=== PATIENT | female | born 1990 | race Caucasian/White ===

== ENCOUNTER 2020-04-02 12:01 | Emergency (ER) | payer OTHER, SELFPAY ==
--- NOTE | ~2020-04-02 | XR_ITS ---
EXAMINATION: XR shoulder RT min 2V DATE: 04/02/2020 12:42 INDICATION: Right shoulder pain. TECHNIQUE: 5 views of right shoulder were obtained. COMPARISON: None. FINDINGS: Bone alignment is normal. No fracture. Glenohumeral joint is normal. There is mild acromioc lavicular joint osteoarthritis. IMPRESSION: 1. Mild right acromioclavicular joint osteoarthritis. Reviewed, dictated and finalized at location A.
[2020-04-02 12:09] VITALS: BP 112/67; PULSE 77; RESP 16; TEMP 37.1; O2SAT 100
--- NOTE | 2020-04-02 12:45 | ED.GENADULT ---
HPI - General Adult General Chief complaint: Extremity Problem,Nontraumatic Stated complaint: arm pain Time Seen by Provider: 04/02/20 12:45 Source: patient and RN notes reviewed Mode of arrival: ambulatory Limitations: no limitations History of Present Illness HPI narrative: 29-year-old female presents with complaints of right diffused shoulder pain for the past 1.5 months. Chiropractor treatment and OTC medication (no medication for 2 weeks) with little relief. Denies numbness or tingling. Shameka says she fell down the steps and reached out to grab something to break her fall, otherwise no known injury. Hurts with movement of shoulder. Denies radiating pain. No loss of mobility. No swelling. Exacerbating factor is movement. Relieving factor is rest. The dominant hand is the RIGHT HAND. Remains active. The patient reports they have not been diagnosed with COVID-19. The patient reports they are not waiting for the results of a COVID-19 lab test. The patient reports they do not have fever, chills, weakness, fatigue, myalgia, or facial swelling. The patient reports they do not have a new or worsening cough or shortness of breath. Denies chest pain. The patient reports they do not have any rhinorrhea, congestion, sore throat, nausea, vomiting, abdominal pain, and diarrhea. Tolerating po intake well. Denies recent traveling. Denies concerns for COVID-19 or exposures been home since [id number] order except for essential household needs and return home. At this time, patient is not suspected of having COVID-19. Some parts of this dictation were generated by voice recognition software and may contain typographical and/or grammatical inaccuracies. Related Data Home Medications Medication Instructions Recorded Confirmed No Home Medications 04/02/20 04/02/20 Allergies Allergy/AdvReac Type Severity Reaction Status Date / Time No Known Allergies Allergy Verified 04/02/20 12:42 Review of Systems Review of Systems: Narrative: CONSTITUTIONAL: Denies fever, chills, sweats. EYES: Denies visual changes, redness, discharge. ENT: Denies rhinorrhea, congestion, sore throat, otalgia. CARDIOVASCULAR: Denies chest pain, palpitations, edema. RESPIRATORY: Denies dyspnea, wheezing, cough. GASTROINTESTINAL: Denies abdominal pain, nausea, vomiting, diarrhea. GENITOURINARY: Denies dysuria, hematuria, abnormal discharge. SKIN: Denies rash or itching. MUSCULOSKELETAL: Denies acute back pain or myalgia. Complains of diffused RT shoulder pain. NEUROLOGIC: Denies numbness or focal weakness. PSYCHIATRIC: Denies anxiety or depression. All other systems reviewed & are unremarkable except as noted in HPI and below. [facility] Past Medical History Medical History (Updated 04/02/20 @ 12:59 by YANG Ulloa) No significant medical problems Surgical History Surgical History (Updated 04/02/20 @ 12:53 by YANG Ulloa) No significant past surgical history Family History Family History (Updated 04/02/20 @ 12:54 by YANG Ulloa) Father Hypertension Mother Hypertension Breast cancer Social History Social History (Updated 04/02/20 @ 12:54 by YANG Ulloa) Smoking status: Never smoker Second hand tobacco smoke exposure: No Alcohol intake: current Substance use: never Living arrangements: with family Gender identity (if verbalized by the patient): Female Comments At time of signature, agree with nurse past medical, surgical, social, and family history. There is no relevant family history pertinent to the presenting complaint. Exam Narrative: Exam Narrative: GENERAL: This is a well-nourished, well-developed patient, in no apparent distress. Talks in full sentences and ambulates with steady gait without dyspnea. HEAD: normocephalic, atraumatic. EYES: PERRL. Sclera clear/white. Vision is grossly intact. NECK: Neck supple, non-tender without lymphadenopathy, masses or thyromegaly
== END 2020-04-02 13:00 | disposition home or self-care (01) ==
PROVIDERS: Emergency Provider Nurse Practitioner Family
DX: M19.011 Primary osteoarthritis, right shoulder (principal)
CPT/HCPCS: 73030; 99213; G0463

== ENCOUNTER 2021-05-10 10:09 | Emergency (ER) | payer OTHER, MEDICAID, SELFPAY ==
[2021-05-10 10:18] VITALS: BP 115/63; PULSE 70; RESP 16; TEMP 37.3; O2SAT 100
--- NOTE | 2021-05-10 10:56 | ED.URI ---
HPI - URI/Sore Throat General Chief Complaint: Upper Respiratory Infection Stated Complaint: sore throat Time Seen by Provider: 05/10/21 10:28 Source: RN notes reviewed and old records reviewed Mode of arrival: ambulatory Limitations: no limitations History of Present Illness HPI Narrative: 30-year-old female who presents to [facility] with complaints of sore throat for the past 3 days with some sinus drainage and some pressure feelings in her ears. Patient states that she did have COVID in September of 2020. Patient reports that she does not have a cough but she has sinus drainage for which she has been taking Zyrtec and Flonase nasal spray. MD elicited complaint: sore throat Pertinent past history: seasonal allergies Onset (ago): day(s) (3) Related Data Home Medications Medication Instructions Recorded Confirmed cetirizine [Zyrtec] 10 mg PO DAILY 05/10/21 05/10/21 Allergies Allergy/AdvReac Type Severity Reaction Status Date / Time No Known Allergies Allergy Verified 05/10/21 10:53 Review of Systems Review of Systems: Narrative: CONSTITUTIONAL: Denies fever, chills, or sweats. EYES: Denies visual changes, redness, or discharge. ENT: Positive rhinorrhea, no acute congestion, positive for sore throat, states that she has bilateral ear pressure CARDIOVASCULAR: Denies chest pain, palpitations, or edema. RESPIRATORY: Denies cough or dyspnea. GASTROINTESTINAL: Denies abdominal pain, nausea, vomiting, or diarrhea. GENITOURINARY: Denies dysuria or hematuria. SKIN: Denies rash or itching. MUSCULOSKELETAL: Denies back pain, joint pain, or myalgia. NEUROLOGIC: Denies acute headache, numbness, or weakness. PSYCHIATRIC: Denies anxiety or depression. All systems reviewed & are unremarkable except as noted in HPI and below PMFSH Past Medical History Medical History (Updated 05/10/21 @ 16:20 by Anna Marie Turner NP) COVID-October UTI (urinary tract infection) Surgical History Surgical History (Updated 05/10/21 @ 16:19 by Anna Marie Turner NP) History of placement of ear tubes Family History Family History (Updated 05/10/21 @ 11:00 by Anna Marie Turner NP) Father Hypertension Mother Hypertension Breast cancer Grandparent Breast cancer Social History Social History (Updated 04/02/20 @ 12:54 by YANG Ulloa) Smoking status: Never smoker Second hand tobacco smoke exposure: No Alcohol intake: current Substance use: never Gender identity (if verbalized by the patient): Female Comments At time of signature, agree with nursing past medical, surgical, social and family history. There is no relevant family history pertinent to the presenting complaint Exam Narrative: Exam Narrative: GENERAL: Well-appearing, well-nourished, and in no acute distress. HEAD: Normocephalic, atraumatic. EYES: PERRLA and EOMI. ENT: Nares red, clear rhinorrhea or epistaxis. Mucous membranes moist.TM's normal with good light reflex, Throat red swollen tonsils red petechiae on top of posterior pharynx and sides of mouth also NECK: Supple.no lymphadenopathy CHEST: Clear to auscultation. No respiratory distress.SAO2 100% on room air. HEART: Regular rate and rhythm. No murmur heard. Normal peripheral pulses. ABDOMEN: Soft, nontender, nondistended, normal active bowel sounds. EXTREMITIES: Normal range of motion. No edema. SKIN: Warm, dry, no rash. NEURO: No focal deficits. Alert and oriented x3. Course Vital Signs Vital signs: Vital Signs Temperature 37.3 C 05/10/21 10:18 Pulse Rate 70 05/10/21 10:18 Respiratory Rate 16 05/10/21 10:18 Blood Pressure 115/63 05/10/21 10:18 Pulse Oximetry 100 05/10/21 10:18 Temperature 37.3 C 05/10/21 10:18 Pulse Rate 70 05/10/21 10:18 Respiratory Rate 16 05/10/21 10:18 Blood Pressure 115/63 05/10/21 10:18 Pulse Oximetry 100 05/10/21 10:18 MDM - URI/Sore Throat Differential Diagnosis Differential diagnosis: Likely upper r
== END 2021-05-10 11:22 | disposition home or self-care (01) ==
PROVIDERS: Emergency Provider Registered Nurse
DX: J03.90 Acute tonsillitis, unspecified (principal); Z86.16 Personal history of COVID-19
CPT/HCPCS: 87081; 87880; 99213; G0463